=== PATIENT | male | born 1970 | race Caucasian/White ===

== ENCOUNTER 2017-02-01 17:40 | Emergency (ER) | payer SELFPAY ==
[~2017-02-01] VITALS: Ht 193 cm; Wt 73.0 kg
[~2017-02-01 17:40] MED LIST: Z.0.NO CURRENT MEDS
[2017-02-01 17:47] VITALS: BP 172/102; PULSE 81; RESP 18; TEMP 98; O2SAT 96
[2017-02-01 17:56] VITALS: RESP 18; O2SAT 96
[2017-02-01] MEDS ORDERED: SODIUM CHLORIDE 0.9% FLUSH 10 ML FLUSH IVF PRN (18:00)
[2017-02-01 18:11] LABS: AUTOMATED NEUTROPHIL # 3.9 TH/MM3 (1.8-7.7); BASOPHIL # 0.1 TH/MM3 (0-0.2); BASOPHIL % 1.3 % (0.0-2.0); EOSINOPHIL # 0.1 TH/MM3 (0-0.4); EOSINOPHIL % 1.6 % (0.0-4.0); HEMO FLAGS DIFF FINAL; LYMPH % 19.5 % (9.0-44.0); LYMPHOCYTE # 1.1 TH/MM3 (1.0-4.8); MEAN CELL VOLUME 89.9 FL (80.0-100.0); MEAN CORPUSCULAR HEMOGLOBIN 30.4 PG (27.0-34.0); MEAN CORPUSCULAR HGB CONC 33.8 % (32.0-36.0); MONO % 6.5 % (0.0-8.0); NEUT % 71.1 % (16.0-70.0); PLATELET COUNT 224 TH/MM3 (150-450); RED BLOOD COUNT 4.45 MIL/MM3 (4.50-5.90); RED CELL DISTRIBUTION WIDTH 13.6 % (11.6-17.2); WHITE BLOOD COUNT 5.5 TH/MM3 (4.0-11.0)
--- NOTE | 2017-02-01 18:11 | PD ---
HPI Chief Complaint: OD/ Ingestion Time Seen by Provider: 17:47 Travel History International Travel<30 days: No Contact w/Intl Traveler<30days: No Traveled to known affect area: No History of Present Illness HPI This patient reports that he crushed up some Dilaudid pills and injected it into himself. He apparently after that lost consciousness and a friend found him and called 911. Paramedics found him with decreased responsiveness and he received 2 mg IM Narcan and then woke up. He denies suicidal ideation or intentional overdose. He was just trying to "get high". He denies having other medical problems. Symptoms severity is moderate. Decreased mental status was alleviated with Narcan. Duration 1 hour PFSH Past Medical History Cardiovascular Problems: Yes (HBP PT STATES DOES NOT TAKE MED) Diminished Hearing: No Hepatitis: Yes (B) Social History Alcohol Use: No Tobacco Use: Yes (09/11 DAY ) Allergies-Medications (Allergen,Severity, Reaction): Coded Allergies: No Known Allergies (Verified , 03/30/11) Reported Meds & Prescriptions Reported Meds & Active Scripts Active Reported No Current Meds (Miscellaneous Medication) Misc Review of Systems General / Constitutional: No: Fever Eyes: No: Visual changes HENT: No: Headaches Cardiovascular: No: Chest Pain or Discomfort Respiratory: No: Shortness of Breath Gastrointestinal: No: Abdominal Pain Genitourinary: No: Dysuria Musculoskeletal: No: Pain Skin: No Rash Neurologic: Positive: Change in Mentation, No: Weakness Psychiatric: Positive: Substance Abuse, No: Depression Endocrine: No: Polydipsia Hematologic/Lymphatic: No: Easy Bruising Physical Exam Narrative GENERAL: Thin well-developed patient in no apparent distress. SKIN: Focused skin assessment reveals no rash and nodules. Skin is Warm and dry. HEAD: Atraumatic. Normocephalic. EYES: Pupils equal and round. No scleral icterus. No injection or drainage. ENT: No nasal bleeding or discharge. Mucous membranes pink and moist. NECK: Trachea midline. No JVD. CARDIOVASCULAR: Regular rate and rhythm. No murmur appreciated. RESPIRATORY: No accessory muscle use. Clear to auscultation. Breath sounds equal bilaterally. GASTROINTESTINAL: Abdomen soft, non-tender, nondistended. Hepatic and splenic margins not palpable. MUSCULOSKELETAL: No obvious deformities. No clubbing. No cyanosis. No edema. NEUROLOGICAL: Awake and alert. No obvious cranial nerve deficits. Motor grossly within normal limits. Normal speech. PSYCHIATRIC: Appropriate mood and affect; insight and judgment poor. Data Data Last Documented VS Vital Signs Date Time Temp Pulse Resp B/P Pulse Ox O2 Delivery O2 Flow Rate FiO2 02/01/17 17:56 18 96 Nasal Cannula 3 02/01/17 17:47 81 02/01/17 17:47 98.0 172/102 Orders Basic Metabolic Panel (Bmp) (02/01/17 17:53) Complete Blood Count With Diff (02/01/17 17:53) Iv Access Insert/Monitor (02/01/17 17:53) Ecg Monitoring (02/01/17 17:53) Oximetry (02/01/17 17:53) Sodium Chloride 0.9% Flush (Ns Flush) (02/01/17 18:00) Drug Screen, Random Urine (02/01/17 17:53) Alcohol (Ethanol) (02/01/17 17:53) Labs Laboratory Tests Test 02/01/17 18:00 White Blood Count 5.5 TH/MM3 Red Blood Count 4.45 MIL/MM3 Hemoglobin 13.5 GM/DL Hematocrit 40.0 % Mean Corpuscular Volume 89.9 FL Mean Corpuscular Hemoglobin 30.4 PG Mean Corpuscular Hemoglobin 33.8 % Concent Red Cell Distribution Width 13.6 % Platelet Count 224 TH/MM3 Mean Platelet Volume 7.4 FL Neutrophils (%) (Auto) 71.1 % Lymphocytes (%) (Auto) 19.5 % Monocytes (%) (Auto) 6.5 % Eosinophils (%) (Auto) 1.6 % Basophils (%) (Auto) 1.3 % Neutrophils # (Auto) 3.9 TH/MM3 Lymphocytes # (Auto) 1.1 TH/MM3 Monocytes # (Auto) 0.4 TH/MM3 Eosinophils # (Auto) 0.1 TH/MM3 Basophils # (Auto) 0.1 TH/MM3 CBC Comment DIFF FINAL Differential Comment MDM Medical Decision Making Medical Screen Exam Complete: Yes Emergency Medical Condition: Yes Medical Record Reviewed: Yes Differential Diagnosis Dilaudid overdose, polysubstance abuse, overmedication Narrative Course I have reviewed the patient's electronic medical record. Has not been here in several years IV placed Patient's now alert and oriented Will monitor closely to make sure the Narcan does not wear off and need re- dosing Extended cardiac monitoring reveals sinus rhythm without ectopy CBC is normal Metabolic profile is pending Alcohol level is pending Tox screen is pending He did not take any products containing Tylenol or aspirin. He did not have any alcohol per his report. Patient is very clear and lucid and refusing to stay any longer. Had a lengthy discussion with him explaining that I was worried that the Narcan could possibly were often he could get somnolent again. While he is making poor judgment he has the capacity to make that poor judgment and is refusing to stay and signed out AGAINST MEDICAL ADVICE. There is no legal indication to physically restrain him to the bed because that's what it would take at this point to keep him here. He has a substance abuse problem but not a psychiatric problem. Had no intent to harm himself. Diagnosis Primary Impression: Overdose of opiate or related narcotic Qualified Code: T40.601A - Overdose of opiate or related narcotic, accidental or unintentional, initial encounter Disposition: 07 AGAINST MEDICAL ADVICE Jose Hebert MD February 01, 2017 18:11
[2017-02-01 18:26] LABS: ANION GAP 6 MEQ/L (5-15); BICARBONATE 29.5 MEQ/L (21.0-32.0); BLOOD UREA NITROGEN 13 MG/DL (7-18); CHLORIDE 108 MEQ/L (98-107); GLOMERULAR FILTRATION RATE 72 ML/MIN (>89); POTASSIUM 3.2 MEQ/L (3.5-5.1); SODIUM (NA) 143 MEQ/L (136-145)
[2017-02-01 18:55] LABS: AMPHETAMINE, URINE NEG (NEG); BARBITURATES, URINE NEG (NEG); COCAINE, URINE POS (NEG)
== END 2017-02-01 18:10 | disposition left against medical advice (07) ==
LOC: NEPC 17:40
DX: T40.601A Poisoning by unspecified narcotics, accidental (unintentional), initial encounter (principal); I10 Essential (primary) hypertension; F17.200 Nicotine dependence, unspecified, uncomplicated; Z86.19 Personal history of other infectious and parasitic diseases; Z53.29 Procedure and treatment not carried out because of patient's decision for other reasons
CPT/HCPCS: 80048; 80307; 85025; 99284